=== PATIENT | male | born 1980 | race Two or more races ===

== ENCOUNTER 2020-02-01 16:46 | Emergency (ER) | payer MEDICAID ==
[~2020-02-01] VITALS: Ht 188 cm; Wt 111.6 kg
[2020-02-01 17:14] LABS: Amphetamine Screen, Urine POSITIVE (NEGATIVE); Barbiturate Scree,Urine NEGATIVE (NEGATIVE); Benzodiazephine Screen, Urine NEGATIVE (NEGATIVE); Cannabinoid Screen, Urine NEGATIVE (NEGATIVE); Cocaine Screen, Urine NEGATIVE (NEGATIVE); Phencyclidine Screen, Urine NEGATIVE (NEGATIVE)
[2020-02-01 17:21] LABS: Opiate Scree,Urine NEGATIVE (NEGATIVE)
[2020-02-01 18:26] LABS: Basophils # (auto) 0 10 ^3/uL (0-0.2); Basophils % (auto) 0.3 % (0.0-2.0); Eosinophils # (auto) 0 10 ^3/uL (0-0.8); Eosinophils % (auto) 0.3 % (0.0-7.0); Hematocrit 45.3 % (41.0-53.0); Hemoglobin 15.7 g/dL (13.5-17.5); Lymphocytes # (auto) 0.8 10 ^3/uL (0.4-5.4); Mean Corpuscular Hgb Conc. 34.6 g/dL (32.0-36.0); Mean Corpuscular Volume 89.3 fL (80.0-100.0); Monocytes # (auto) 0.6 10 ^3/uL (0-1.3); Monocytes % (auto) 8.5 % (0.0-12.0); Neutrophils # (auto) 6.1 10 ^3/uL (1.6-8.6); Neutrophils % (auto) 80.9 % (37.0-80.0); Platelet Count (auto) 164 10^3/uL (140-450); Red Blood Cells 5.07 10^6/uL (4.5-5.90); Red Cell Distribution Width 13.3 % (11.8-14.3); White Blood Cell 7.5 10^3/uL (4.4-10.8)
[2020-02-01 18:38] LABS: Potassium 4.6 mmol/L (3.5-5.1)
[2020-02-01 18:43] LABS: Albumin 3.4 g/dL (3.4-5.0); BUN/Creatinine Ratio 17.3; Calcium 8.4 mg/dL (8.5-10.1)
[2020-02-01 18:45] LABS: Bilirubin, Total 0.5 mg/dL (0.2-1.0); Total Protein 7.7 g/dL (6.4-8.2)
[2020-02-01 19:01] VITALS: BP 102/66
[2020-02-01] MEDS ORDERED: IBUPROFEN 800 MG TAB PO ONE (19:30)
== END 2020-02-01 19:38 | disposition home or self-care (01) ==
LOC: ER 16:46
DX: R51 Headache (principal); F15.10 Other stimulant abuse, uncomplicated; E86.0 Dehydration; F19.10 Other psychoactive substance abuse, uncomplicated; I10 Essential (primary) hypertension
CPT/HCPCS: 36415; 70450; 80053; 80307; 85025; 87804

== ENCOUNTER → 2020-02-01 | Emergency (ER) | payer MEDICAID, OTHER ==
[~2020-02-01] VITALS: Ht 190.5 cm; Wt 110.7 kg
[~2020-02-01] MED LIST: KETOROLAC TROMETH 60MG/2ML VIAL IM ONE; METHOCARBAMOL 500 MG TAB PO ONE
[2020-02-01 08:47] VITALS: BP 140/87
[2020-02-01 09:02] LABS: Urine Bacteria NONE SEEN /hpf (None Seen); Urine Blood 1+ /uL (Negative); Urine Mucus FEW (None Seen); Urine Specific Gravity 1.022 (1.001-1.035); Urine WBC <1 /hpf (0 - 3)
== END | disposition home or self-care (01) ==
LOC: ER 08:42
DX: S33.5XXA Sprain of ligaments of lumbar spine, initial encounter (principal); X58.XXXA Exposure to other specified factors, initial encounter; Y93.89 Activity, other specified; Y92.89 Other specified places as the place of occurrence of the external cause; Y99.8 Other external cause status
CPT/HCPCS: 74176; 81001; 82962; 96372; 99284; J1885